=== PATIENT | male | born 1940 ===

== ENCOUNTER 2017-04-01 14:11 | Outpatient (CLI) | payer MEDICARE ==
[2017-04-01] MEDS ORDERED: Sodium Chloride 0.9% 15 ML NEB ONE (17:00)
--- NOTE | 2017-04-06 22:52 | HP ---
DATE OF SERVICE: 04/01/2017 HISTORY OF PRESENT ILLNESS: Mr. Talon Rooney is a very pleasant 77-year-old gentleman accompanied by h is who presents to the [facility] Center for evaluation of 2 ulcerations of the right lower leg. The patient states that he hit his right lower leg against the foot rest of his wheelchair in December of this year. He states that the wounds "seep yellow liquid" beginning one month ago. He states shabnam t when the wounds worsened in their appearance, he began dressing the wounds with Bactroban ointment which he had on hand. Specifically, he states that the wounds increased in their dimensions. The pa josefjennifer states that he was seen by his primary care physician and placed on a 10-day course of Bactrim. He states that he was later seen by Dermatology and at this time evaluation in the [facility] was recommended. At this time, the patient was also instructed to dress his wounds with Vase line. The patient states that he was later seen at [facility] and placed on p.o. ciprofloxacin and p.o. minocycline by Infectious Diseases each for 14 days. The patient states that he was also seen b y Wound Care at [facility] and placed on dressing changes of Medihoney and gauze secured with tape. The patient states that he has been performing the preceding dressing changes either daily or twice a day. PAST MEDICAL HISTORY: 1. Hypertension. 2. Arthritis. 3. Multiple myeloma. PAST SURGICAL HISTORY: 1. Left hip replacement. 2. Right knee replacement. 3. Back surgery. MEDICATIONS: 1. Methadone. 2. Gabapentin. 3. Valtrex. 4. Ondansetron. 5. Paxil. 6. Crestor. 7. HCTZ. ALLERGIES: No known diagnosed allergies. SOCIAL HISTORY: Significant for tobacco use of up to 2 packs of cigarettes per day for 2-3 years. T he patient also admits to the "social" consumption of alcohol in the past. FAMILY HISTORY: Negative for diabetes mellitus or coronary artery disease. REVIEW OF SYSTEMS: The patient states that he takes p.o. medication for multiple myeloma. He states that he takes the p.o. medication for 21 days consecutively and then holds the p.o. medication for 2 1 days as instructed. PHYSICAL EXAMINATION: VITAL SIGNS: Temperature 97.7, pulse 82, respirations 17, blood pressure 119/88. GENERAL: A 77-year-old gentleman, sitting on chair in examination room, in no acute distress. HEENT: Normocephalic, atraumatic. NECK: No nuchal rigidity. CHEST: Clear to auscultation. CARDIOVASCULAR: Regular rate and rhythm. ABDOMEN: Soft. EXTREMITIES: Two wounds of the right lower leg are present, which measure approximately 3.3 x 4.3 cm and 2.3 x 1.2 cm. No purulent drainage is associated with either wound. No cellulitis of the right lower leg is appreciated. Erythema of the right lower leg is present and appears to be secondary to chronic venous hypertension. Maceration of the skin of the right lower leg is noted. A pedal pulse is palpable on the right. Mild to moderate edema of the right foot and lower leg is present on exam today. ASSESSMENT AND PLAN: 1. Chronic venous hypertension with ulcers and inflammation. Dressing changes of Adaptic, Webril, a nd the 3M Coban two-layer compression system will be initiated today. These dressing changes are to be performed 2 times per week after cleansing and irrigation with the assistance of Home Health. The patient is to continue ciprofloxacin and minocycline as previously prescribed by Infectious Diseases at [facility]. I will see Mr. Rooney again in two weeks. 2. Hypertension. 3. Arthritis. 4. Multiple myeloma.
== END 2017-04-01 14:12 | disposition home or self-care (01) ==
LOC: WCC 14:11
PROVIDERS: ATTEND Family Medicine
DX: I87.331 Chronic venous hypertension (idiopathic) with ulcer and inflammation of right lower extremity (principal); L97.819 Non-pressure chronic ulcer of other part of right lower leg with unspecified severity; M19.90 Unspecified osteoarthritis, unspecified site; C90.00 Multiple myeloma not having achieved remission; I10 Essential (primary) hypertension
CPT/HCPCS: 29581; 97139; G0463; 99204; A4218

== ENCOUNTER 2017-04-16 13:57 | Outpatient (CLI) | payer MEDICARE ==
[2017-04-16] MEDS ORDERED: Sodium Chloride 0.9% 15 ML NEB ONE (17:52)
--- NOTE | 2017-04-16 20:09 | PRG ---
DATE OF SERVICE: 04/16/2017 HISTORY: Mr. Talon Rooney is a very pleasant 77-year-old gentleman accompanied by his , who presen ts to the Wound Center for evaluation of 2 ulcerations of the right lower leg. The patient previousl y stated that he hit his right lower leg against the foot rest of his wheelchair in December of this year. He stated that the wounds are "seeps yellow liquid" 1 month prior to his initial presentation to the Wound Center. He stated that when the wounds worsened in their appearance, he began dressing the wounds with Bactroban ointment, which he had on hand. Specifically, he stated that the wounds h ad increased in their dimensions. The patient stated that he was seen by his primary care physician and placed on a 10-day course of Bactrim. He stated that he was later seen by Dermatology and at thi s time evaluation in the [facility] was recommended. At this time, the patient was also instructed to dress his wounds with Vaseline. The patient stated that he was later seen at [facility] and placed on p.o. ciprofloxacin and p.o. minocycline by Infectious Diseases each for 14 days. T he patient stated that he was also seen by Wound Care at [facility] and placed on dressing changes o f Medihoney and gauze secured with tape. Prior to being seen in the Wound Center, the patient stated that he had been performing the preceding dressing changes either daily or twice a day. After being seen in the Wound Center, dressing changes of Adaptic, Webril, and 3M Coban 2 layer compression syst em were initiated. The patient has been receiving the preceding dressing changes 2 times per week wi th the assistance of Home Health. PHYSICAL EXAMINATION: VITAL SIGNS: Temperature 97.8, pulse 52, respirations 17, and blood pressure 151/71. EXTREMITIES: The 2 wounds of the right lower leg have coalesced into one wound, which measures appro ximately 5.5 x 5.0 cm. Granulation tissue is present within the wound margins. No purulent drainage is associated with the wound. No cellulitis of the right lower leg is appreciated. Erythema of the right lower leg is present and appears to be secondary to stasis changes. Maceration of the skin of the right lower leg is noted. A pedal pulse is palpable on the right, edema of the right lower leg is present on exam today. ASSESSMENT AND PLAN: 1. Chronic venous hypertension with ulcer and inflammation. Dressing changes of Adaptic, Webril, an d 3M Coban two-layer compression system will be continued 2 times per week after cleansing and irriga tion with the assistance of Home Health. I will see Mr. Rooney again in 4 weeks. 2. Hypertension. 3. Arthritis. 4. Multiple myeloma.
== END 2017-04-16 13:58 | disposition home or self-care (01) ==
LOC: WCC 13:57
PROVIDERS: ATTEND Family Medicine
DX: I87.331 Chronic venous hypertension (idiopathic) with ulcer and inflammation of right lower extremity (principal); L97.919 Non-pressure chronic ulcer of unspecified part of right lower leg with unspecified severity; I10 Essential (primary) hypertension; M19.90 Unspecified osteoarthritis, unspecified site; C90.00 Multiple myeloma not having achieved remission
CPT/HCPCS: A4218

== ENCOUNTER 2017-05-14 10:00 | Outpatient (CLI) | payer MEDICARE ==
--- NOTE | 2017-05-14 11:39 | PRG ---
DATE OF SERVICE: 05/14/2017 HISTORY: Mr. Talon Rooney is a very pleasant 77-year-old gentleman accompanied by his who presents to the Wound Center for evaluation of an ulceration of the right lower leg. The patient previously stated that he hit his right lower leg against the foot rest of his wheelchair in 12/2016. He stated that the resulting wounds seeped yellowed liquid 1 month prior to his initial presentation to the Wound Center. He stated that when the wounds worsened in their appearance, he began dressing the wounds with Bactroban ointment which he had on hand. Specifically, he stated that the wounds had increased in their dimensions. The patient stated that he was seen by his primary care physician and placed on a 10-day course of Bactrim. He stated that he was later seen by Dermatology, and at this time, evaluation in the [facility] was recommended. At this time, the patient was also instructed to dress his wound with Vaseline. The patient stated that he was later seen at [facility] and placed on p.o. ciprofloxacin and p.o. minocycline by Infectious Diseases each for 14 days. The patient stated that he was also seen by Wound Care at [facility] and placed on dressing changes of Medihoney and gauze secured with tape. Prior to being seen in the Wound Center, the patient stated, he had been performing dressing changes either daily or twice a day. After being seen in the Wound Center, dressing changes of Adaptic, Webril, and the 3M Coban 2-layer compression system were initiated. The patient has been receiving dressing changes 2 times per week with the assistance of Home Health. PHYSICAL EXAMINATION: VITAL SIGNS: Temperature 97.8, pulse 75, blood pressure 130/71. EXTREMITIES: A large wound of the right lower leg is present, which measures approximately 9.0 x 5.5 cm. The dimensions of the wound at the time of the patient's last visit were approximately 5.5 x 5.0 cm. Granulation tissue is present within the wound margins. No purulent drainage is associated with the wound. No cellulitis of the right lower leg is appreciated. No maceration of the skin of the periwound is noted. A dorsalis pedis pulse is easily palpable on the right. Mild to moderate edema of the right lower leg is present on exam today. ASSESSMENT AND PLAN: 1. Chronic venous hypertension with ulcer and inflammation. Dressing changes of Xeroform gauze, ABDs, Webril, and the 3M Coban 2-layer compression system are to be performed 1-2 times per week after cleansing and irrigation with the assistance of Home Health. I will see Mr. Rooney again in four weeks. I have explained to the patient that his wound has been present for 4 weeks, and because he has an easily palpable dorsalis pedis pulse on the right, he is a suitable candidate for treatment with a bioengineered skin substitute, specifically Apligraf. At the time of the patient's visit in 4 weeks, consideration will be given to treatment with Apligraf. The patient understands and is in agreement with the preceding treatment plan. 2. Hypertension. 3. Arthritis. 4. Multiple myeloma. MTDD
== END 2017-05-14 10:01 | disposition home or self-care (01) ==
LOC: WCC 10:00
PROVIDERS: ATTEND Family Medicine
DX: I87.331 Chronic venous hypertension (idiopathic) with ulcer and inflammation of right lower extremity (principal); M19.90 Unspecified osteoarthritis, unspecified site; C90.00 Multiple myeloma not having achieved remission
CPT/HCPCS: 29581

== ENCOUNTER 2017-06-11 11:32 | Outpatient (CLI) | payer MEDICARE ==
[~2017-06-11 11:32] MED LIST: Sodium Chloride 0.9% 15 ML NEB ONE
--- NOTE | 2017-06-11 19:25 | PRG ---
DATE OF SERVICE: 06/11/2017 HISTORY: Mr. Talon Rooney is a very pleasant 77-year-old gentleman who presents to the Wound Center for evaluation of an ulceration of the right lower leg. The patient previously stated that he hit his right lower leg against the footrest of his wheelchair in 12/2016. He stated that the resulting wounds seeped yellow liquid 1 month prior to his initial presentation to the Wound Center. He stated that when the wounds worsened in their appearance, he began dressing the wounds with Bactroban ointment which he had on hand. Specifically , he stated that the wounds had increased in their dimensions. The patient stated that he was seen by his primary care physician and placed on a 10-day course of Bactrim. He stated that he was later seen by Dermatology, and at this time evaluation in the [facility] was recommended. The patient stated that he was later seen at [facility] and placed on p.o. ciprofloxacin and p.o. minocycline by Infectious Diseases each for 14 days. The patient stated that he was also seen by Wound Care at [facility] and placed on dressing changes of Medihoney and gauze secured with tape. Prior to being seen in the Wound Center, the patient stated, he had been performing dressing changes either daily or twice a day. After being seen in the Wound Center, dressing changes of Adaptic, Webril, and the 3M Coban 2-layer compression system were initiated. More recently, the patient has been receiving dressing changes of Xeroform gauze, ABDs, Webril, and the 3M Coban 2- layer compression system. The patient has been receiving the preceding dressing changes 2 times per week with the assistance of Home Health. PHYSICAL EXAMINATION: VITAL SIGNS: Temperature 98.0, pulse 77, respirations 17, blood pressure 126/ 61. EXTREMITIES: A large wound of the right lower leg is present, which measures approximately 7.5 x 5.0 cm. The dimensions of the wound at the time of the patient's last visit were approximately 9.0 x 5.5 cm. Granulation tissue is present within the wound margins. No purulent drainage is associated with the wound. No cellulitis of the right lower leg is appreciated. No maceration of the skin of the periwound is noted. A dorsalis pedis pulse is palpable on the right. No significant edema of the right lower leg is present on exam today. Apligraf was applied to the wound bed of the right lower leg ulceration followed by Adaptic touch, a gauze bolster, 4 x 4s, an ABD, Webril, and the 3M Coban 2-layer compression system. ASSESSMENT AND PLAN: 1. Chronic venous hypertension with ulcer and inflammation. Apligraf was applied to the wound bed of the ulceration today. I will see Mr. Rooney again in one week. At this time, consideration will be given to treatment with Apligraf. 2. Hypertension. 3. Arthritis. 4. Multiple myeloma. MTDD
== END 2017-06-11 11:33 | disposition home or self-care (01) ==
LOC: WCC 11:32
PROVIDERS: ATTEND Family Medicine
DX: I87.331 Chronic venous hypertension (idiopathic) with ulcer and inflammation of right lower extremity (principal); L97.819 Non-pressure chronic ulcer of other part of right lower leg with unspecified severity; I10 Essential (primary) hypertension; M19.90 Unspecified osteoarthritis, unspecified site; C90.00 Multiple myeloma not having achieved remission
CPT/HCPCS: 15271; A4218; Q4101-KX-JC

== ENCOUNTER 2017-06-18 11:23 | Outpatient (CLI) | payer MEDICARE ==
--- NOTE | 2017-06-18 14:58 | PRG ---
DATE OF SERVICE: 06/18/2017 HISTORY: Mr. Talon Rooney is a very pleasant 77-year-old gentleman, who presents to the Wound Center f or evaluation of an ulceration of the right lower leg. After being seen in the Wound Center, dressin g changes of Adaptic, Webril, and 3M Coban two-layer compression system were initiated. More recentl y, the patient began receiving dressing changes of Xeroform gauze, ABDs, Webril, and the 3M Coban two -layer compression system. The patient received the preceding dressing changes, 2 times per week wit h the assistance of Home Health. At the time of the patient's last visit to the Wound Center on 05/28. Apligraf was applied to the wound bed of the ulceration of the right lower leg. PHYSICAL EXAMINATION: VITAL SIGNS: Temperature 98.0, pulse 66, respirations 18, blood pressure 149/71. EXTREMITIES: A large wound of the right lower leg is still present. Granulation tissue is present w ithin the wound margins. No purulent drainage is associated with the wound. No cellulitis of the ri ght lower leg is appreciated. No maceration of the skin of the periwound is noted. A dorsalis pedis pulse is palpable on the right. No significant edema of the right lower leg is present on exam toda y. The dimensions of the wound are approximately 8.0 x 5.0 cm. Apligraf was applied to the wound be d of the right lower leg ulceration followed by Mepitel, gauze bolster, 4 x 4's, and ABD, Webril, and 3M Coban two-layer compression system. ASSESSMENT AND PLAN: 1. Chronic venous hypertension with ulcer and inflammation. Apligraf was applied to the wound bed o f the ulceration today. I will see Mr. Rooney again in one week. At this time, consideration will b e given to another placement of Apligraf. 2. Hypertension. 3. Arthritis. 4. Multiple myeloma.
== END 2017-06-18 11:24 | disposition home or self-care (01) ==
LOC: WCC 11:23
PROVIDERS: ATTEND Family Medicine
DX: I87.331 Chronic venous hypertension (idiopathic) with ulcer and inflammation of right lower extremity (principal); L97.919 Non-pressure chronic ulcer of unspecified part of right lower leg with unspecified severity; I10 Essential (primary) hypertension; M19.90 Unspecified osteoarthritis, unspecified site; C90.00 Multiple myeloma not having achieved remission
CPT/HCPCS: Q4101-KX-JC

== ENCOUNTER 2017-06-25 09:54 | Outpatient (CLI) | payer MEDICARE ==
--- NOTE | 2017-06-25 11:26 | PRG ---
DATE OF SERVICE: 06/25/2017 HISTORY: Mr. Talon Rooney is a very pleasant 77-year-old gentleman who presents to the Wound Center fo r evaluation of an ulceration of the right lower leg. After being seen in the Wound Center, dressing changes of Adaptic, Webril, and 3M Coban 2 layer compression system were initiated. Subsequently, t he patient began receiving dressing changes of Xeroform gauze, ABDs, Webril, and 3M Coban 2 layer com pression system. The patient received the preceding dressing changes 2 times per week with the [facility]. Presently, Mr. Rooney is receiving treatment with Apligraf for the right lower leg ulceration. PHYSICAL EXAMINATION: VITAL SIGNS: Temperature 97.8, pulse 52, respirations 18, blood pressure 135/65. EXTREMITIES: A large wound of the right lower leg is still present. The dimensions of the wound are approximately 7.5 x 6.0 cm. Granulation tissue is present within the wound margins. No purulent dr ainage is associated with the wound. No cellulitis of the right lower leg is appreciated. No macera tion of the skin of the periwound is noted. A dorsalis pedis pulse is easily palpable on the right. No significant edema of the right lower leg is present on exam today. Apligraf was applied to the w ound bed of the right lower leg ulceration followed by Mepitel, a gauze bolster, 4 x 4's, ABD, Webril , and 3M Coban 2 layer compression system. ASSESSMENT AND PLAN: 1. Chronic venous hypertension with ulcer and inflammation. Apligraf was applied to the wound bed o f the ulceration today. I will see Mr. Rooney again in one week. At this time, consideration will b e given to another placement of Apligraf. 2. Hypertension. 3. Arthritis. 4. Multiple myeloma.
== END 2017-06-25 09:55 | disposition home or self-care (01) ==
LOC: WCC 09:54
PROVIDERS: ATTEND Family Medicine
DX: I87.331 Chronic venous hypertension (idiopathic) with ulcer and inflammation of right lower extremity (principal); I10 Essential (primary) hypertension; C90.00 Multiple myeloma not having achieved remission; M19.90 Unspecified osteoarthritis, unspecified site
CPT/HCPCS: Q4101-KX-JC

== ENCOUNTER 2017-07-02 09:57 | Outpatient (CLI) | payer MEDICARE ==
--- NOTE | 2017-07-02 11:50 | PRG ---
DATE OF SERVICE: 07/02/2017 HISTORY: Mr. Talon Rooney is a very pleasant 77-year-old gentleman, who presents to the Wound Center f or evaluation of an ulceration of the right lower leg. After being seen in the Wound Center, dressin g changes of Adaptic, Webril, and 3M Coban 2 layer compression system were initiated. Subsequently, the patient began receiving dressing changes of Xeroform gauze, ABDs, Webril, and 3M Coban 2 layer co mpression system. The patient received the preceding dressing changes 2 times per week with the [facility]. Currently, the patient is receiving treatment with Apligraf for the right low er leg ulceration. PHYSICAL EXAMINATION: VITAL SIGNS: Temperature 98.2, pulse 67, respirations 18, and blood pressure 133/74. EXTREMITIES: A large wound of the right lower leg is still present. The dimensions of the wound are approximately 6.4 x 9.0 cm. Granulation tissue is present within the wound margins. No purulent dr ainage is associated with the wound. No cellulitis of the right lower leg is appreciated. No macera tion of the skin of the periwound is noted. No significant edema of the right lower leg is present o n exam today. Apligraf was applied to the wound bed of the right lower leg ulceration followed by pham Pel[place]o gauze bolster, 4 x 4's, ABD, Webril, and 3M Coban 2 layer compression system. ASSESSMENT AND PLAN: 1. Chronic venous hypertension with ulcer and inflammation. Apligraf was applied to the wound bed o f the ulceration today. Orders will be transmitted to [facility] for the dressings applied in clini c today to be discontinued in one week. At this time, the patient is to begin receiving dressing raymond nges of Xeroform gauze, ABDs, Webril, and 3M Coban 2 layer compression system two times per week afte r cleansing and irrigation. The patient understands and is in agreement with the preceding treatment plan. The patient will contact the clinic in order to schedule his next visit. 2. Hypertension. 3. Arthritis. 4. Multiple myeloma.
== END 2017-07-02 09:58 | disposition home or self-care (01) ==
LOC: WCC 09:57
PROVIDERS: ATTEND Family Medicine
DX: I87.331 Chronic venous hypertension (idiopathic) with ulcer and inflammation of right lower extremity (principal); I10 Essential (primary) hypertension; M19.90 Unspecified osteoarthritis, unspecified site; C90.00 Multiple myeloma not having achieved remission
CPT/HCPCS: 15271; 97139; Q4101

== ENCOUNTER 2017-08-20 10:59 | Outpatient (CLI) | payer MEDICARE ==
--- NOTE | 2017-08-20 13:59 | PRG ---
DATE OF SERVICE: 08/20/2017 HISTORY: Mr. Talon Rooney is a very pleasant 77-year-old gentleman, who presents to the [facility] for evaluation of an ulceration of the right lower leg. After being seen in the Wound Center, dres sing changes of Adaptic, Webril, and 3M Coban 2 layer compression system were initiated. Subsequentl y, the patient began receiving dressing changes of Xeroform gauze, ABDs, Webril, and 3M Coban 2 layer compression system. The patient received the preceding dressing [facility] The patient has completed a course of treatment with Apligraf for the righ t lower leg ulceration. Today, Mr. Rooney presents to the Wound Center complaining of copious draina ge associated with the ulceration of his right lower leg. He states that the drainage is green and B lack. PHYSICAL EXAMINATION: VITAL SIGNS: Temperature 97.7, pulse 57, respirations 18, and blood pressure 133/59. EXTREMITIES: A large wound of the right lower leg is still present. The dimensions of the wound are approximately 8.5 x 6.5 cm. The dimensions of the wound at the time of the patient's visit on 07/02 were approximately 6.4 x 9.0 cm. Granulation tissue is present within the wound margins. A sa mple of granulation tissue was excised with the use of scissors and sent for aerobic and anaerobic cu ltures. No purulent drainage is associated with the wound. No cellulitis of the right lower leg is appreciated. No maceration of the skin of the periwound is noted. A dorsalis pedis pulse is palpabl e on the right. No significant edema of the right lower leg is present on exam today. ASSESSMENT AND PLAN: 1. Chronic venous hypertension with ulcer and inflammation. The patient has been given a prescripti on for Levaquin 500 mg #10 one p.o. q. day x10 days. The patient previously completed a course of tr eatment with Apligraf. Orders will be transmitted to Home Health for dressing changes of Xeroform ga uze, ABDs, Webril, and 3M Coban 2 layer compression system two times per week after cleansing and irr igation. Antibiotic therapy will be modified based upon the results of the tissue cultures obtained today. The patient understands and is in agreement with the preceding treatment plan. Mr. Rooney wi ll contact the Wound Center in order to schedule his next clinic visit. 2. Hypertension. 3. Arthritis. 4. Multiple myeloma.
== END 2017-08-20 11:00 | disposition home or self-care (01) ==
LOC: WCC 10:59
PROVIDERS: ATTEND Family Medicine
DX: I87.331 Chronic venous hypertension (idiopathic) with ulcer and inflammation of right lower extremity (principal); L97.919 Non-pressure chronic ulcer of unspecified part of right lower leg with unspecified severity; C90.00 Multiple myeloma not having achieved remission; I10 Essential (primary) hypertension; M19.90 Unspecified osteoarthritis, unspecified site
CPT/HCPCS: 87070; 87077; 87186; 87205